=== PATIENT | female | born 2000 | race Hispanic/Latino ===

== ENCOUNTER 2022-03-11 20:59 | Emergency (ER) | payer OTHER ==
[~2022-03-11] VITALS: Ht 167.6 cm; Wt 81.7 kg
[2022-03-11] MEDS ORDERED: EPIPEN 2-P0.3 MG/0.3 IM (21:17)
== END 2022-03-11 21:50 | disposition home or self-care (01) ==
LOC: ED 20:59
DX: T78.49XA Other allergy, initial encounter (principal)
CPT/HCPCS: 99283